=== PATIENT | female | born 1935 | race Caucasian/White ===

== ENCOUNTER 2022-09-21 07:20 | Observation (INO) | payer OTHER ==
[~2022-09-21] VITALS: Ht 149.9 cm; Wt 49.9 kg
[2022-09-21 07:26] VITALS: BP 185/75; PULSE 70; RESP 18; TEMP 98.3; O2SAT 99
--- NOTE | 2022-09-21 07:48 | NUR ---
87YO F BIBA FROM [facility], STAFF NOTICED HEMATOMA TO RT UPPER EYE LID. PER MEDICS STAFF STATES PT WAS LEFT ALONE FOR 1HR AND LATER FOUND WITH HEMATOMA. POSSIBLE UNWITNESSED FALL. PT STATES SHE HAS PAIN 7/10 TO RT SIDE OF HEAD, AOX3, HX DEMENTIA, PT STATES SHE DOESN'T REMEMBER FALLING. BRUISING W/SWELLING NOTED TO RT EYE LID OTHERWISE SKIN DRY/INTACT. DAUGHTER AND GRANDDAUGHTER AT BEDSIDE, PER DAUGHTER PT IS AT NORMAL MENTAL STATUS AND DOES NOT TAKE BLOOD THINNERS. PT DENIES N,V,D,C, FEVER, ABD PAIN, BACK PAIN, DIZZINESS, PT ON BRAND STRATEGY MANAGER, NAD NOTED, SAFETY MAINTAINED, CALL LIGHT IN REACH.
--- NOTE | 2022-09-21 07:48 | NUR ---
Note undone in EDM - 09/21/22 at 1050 by [email or web address] MYRIAM SHORT FROM [facility], STAFF NOTICED HEMATOMA TO RT UPPER EYE LID. PER MEDICS STAFF STATES PT WAS LEFT ALONE FOR 1HR AND LATER FOUND WITH HEMATOMA. POSSIBLE UNWITNESSED FALL. PT STATES SHE HAS PAIN 7/10 TO RT SIDE OF HEAD, AOX3, HX DEMENTIA, PT STATES SHE DOESN'T REMEMBER FALLING. BRUISING W/SWELLING NOTED TO RT EYE LID OTHERWISE SKIN DRY/INTACT. DAUGHTER AND GRANDDAUGHTER AT BEDSIDE, PER DAUGHTER PT IS AT NORMAL MENTAL STATUS AND DOES NOT TAKE BLOOD THINNERS. PT DENIES N,V,D,C, FEVER, ABD PAIN, BACK PAIN, DIZZINESS, PT ON CAST ASSOCIATE, NAD NOTED, SAFETY MAINTAINED, CALL LIGHT IN REACH.
[2022-09-21] MEDS ORDERED: ACETAMINOPHEN 325 MG TAB PO ONE (07:50)
--- NOTE | 2022-09-21 08:03 | NUR ---
PT IN CT
--- NOTE | 2022-09-21 08:12 | NUR ---
PT RETURNED TO BED [address] [facility]. FAMILY AT BEDSIDE. CALL LIGHT WITHIN REACH
[2022-09-21 08:13] LABS: BASOPHILS % (AUTO) 0.5 % (0.0-2.0); EOSINOPHILS # (AUTO) 0.1 K/uL (0-0.4); HEMATOCRIT 36.5 % (36-48); HEMOGLOBIN 12.2 g/dL (12.0-16.0); LYMPHOCYTES # (AUTO) 1.3 K/uL (2.5-16.5); LYMPHOCYTES % (AUTO) 22.7 % (20.5-51.1); MEAN CORPUSCULAR HEMOGLOBIN 32 pg (27-31); MEAN CORPUSCULAR HGB CONC 34 g/dL (33-37); MEAN CORPUSCULAR VOLUME 94.6 fL (80-94); MONOCYTES # (AUTO) 0.4 K/uL (0.8-1.0); MONOCYTES % (AUTO) 7.2 % (1.7-9.3); NEUTROPHILS # (AUTO) 3.8 K/uL (1.8-7.7); NEUTROPHILS % (AUTO) 67.6 % (42.2-75.2); PLATELET COUNT (AUTO) 163 K/uL (140-450); RED BLOOD CELL COUNT(AUTO) 3.86 MIL/uL (4.20-5.40); RED CELL DISTRIBUTION WIDTH 13.3 % (11.6-13.7); WHITE BLOOD COUNT (AUTO) 5.7 K/uL (4.8-10.8)
[2022-09-21 08:26] LABS: PROTHROMBIN TIME 10.6 secs (10.8-13.4)
[2022-09-21 08:29] LABS: ALBUMIN 3.7 g/dL (3.4-5.0); ANION GAP 13.2 (8-16); ASPARTATE AMINOTRANSFERASE 18 U/L (15-37); CARBON DIOXIDE 23.9 mmol/L (21-32); CHLORIDE 110 mmol/L (98-107); CREATININE 1.7 mg/dL (0.6-1.3); GLUCOSE 104 mg/dL (74-106); POTASSIUM 5.1 mmol/L (3.5-5.1); SODIUM SERUM 142 mmol/L (136-145); TOTAL BILIRUBIN 0.3 mg/dL (0.0-1.0); UREA NITROGEN, BLOOD 46 mg/dL (7-18)
[2022-09-21] MEDS ORDERED: ACETAMINOPHEN 325 MG TAB PO PRN (09:10)
[2022-09-21] MEDS ORDERED: HYDROcodone/APAP 5/325 MG 1 TAB TAB PO PRN (09:10)
[2022-09-21] MEDS ORDERED: MORPHINE SULFATE 4 MG/ML SYR IVP PRN (09:10)
[2022-09-21] MEDS ORDERED: MAG SULF 2000 MG/WATER PREMIX 50 ML IV PRN (09:10)
[2022-09-21] MEDS ORDERED: LORazepam 1 MG TAB PO PRN (09:10)
[2022-09-21] MEDS ORDERED: ZOLPIDEM 5 MG TAB PO PRN (09:10)
[2022-09-21] MEDS ORDERED: POTASSIUM CHLORIDE 10 MEQ TABER PO PRN (09:10)
[2022-09-21] MEDS ORDERED: KCL 20 MEQ IN 100 mL PREMIX 200 ML IV PRN (09:10)
[2022-09-21] MEDS ORDERED: hydrALAZINE 20 MG/ML VIAL IVP PRN (09:10)
[2022-09-21] MEDS ORDERED: ONDANSETRON 4 MG/2 ML VIAL IVP PRN (09:10)
--- NOTE | 2022-09-21 09:31 | NUR ---
87 Y/O FEMALE BIBA FROM [facility], PT PRESENTS TO ED WITH HEAD INJURY IN RELATION TO UNWTINESSED FALL AND C/O HEADACHE. UPON ASSESSMENT, PT HAS HEMATOMA ON RIGHT FOREHEAD AND IS AT BASELINE MENTATION. DENIES N/V/D, DIZZY, VISION CHANGES. PT DOES NOT TAKE BLOOD THINNERS. SKIN IS PINK/WARM/DRY; LUNGS CLEAR BL; HR EVEN AND REGULAR; PT DENIES ANY FEVER, CP, SOB, OR COUGH AT THIS TIME; PATIENT POSITIONED FOR COMFORT; HOB ELEVATED; BEDRAILS UP X2; BED DOWN. ER MD MADE AWARE OF PT STATUS. CALL LIGHT WITHIN REACH. PMH: ALZHEIMERS, IMPINGEMENT SYNDROME, HLD, HYPOTHYROID, UTI, OSETOARTHRITIS, GLAUCOMA, CALCIFIC TENDONITIS, DEMENTIA NKA
[2022-09-21] MEDS ORDERED: CLONIDINE HYDROCHLORIDE 0.1 MG TAB PO PRN (09:45)
[2022-09-21] MEDS ORDERED: DOCUSATE SODIUM 100 MG GELCAP PO ONE (09:47)
[2022-09-21 09:52] VITALS: O2SAT 99
--- NOTE | 2022-09-21 09:52 | NUR ---
[place] COMFORT[place] [facility] [place], DAUGHTER AND GRANDAUGHTER AT BEDSIDE TALKING AND LAUGHING. NO CHANGE IN CONDITION, AWAITING FOR ADMIT BED TO TELE-OBS. CALL LIGHT IN REACH.
[2022-09-21] MEDS: NACL 0.9% 1,000 ML IV SCH (10:10)
[2022-09-21] MEDS: amLODIPine 5 MG TAB PO SCH (10:16)
[2022-09-21] MEDS ORDERED: INTUBATION KIT MC ONE (10:20)
[2022-09-21 12:00] VITALS: O2SAT 99
--- NOTE | 2022-09-21 12:04 | NUR ---
US AT BEDSIDE
--- NOTE | 2022-09-21 14:11 | NUR ---
RICK REBOLLEDO #[phone] FAX - FAXED OVER CLINICALS AND LABS
[2022-09-21 14:18] VITALS: O2SAT 99
--- NOTE | 2022-09-21 14:22 | NUR ---
NO CHANGE IN CONDITION, PT SLEEPING, CHEST RISE/FALL NOTED, ON DIP TANKER, SAFETY MAINTAINED, AWAITING FOR TELE BED.
[2022-09-21 14:42] LABS: APPEARANCE,URINE CLEAR (CLEAR); BILIRUBIN,URINE NEGATIVE (NEGATIVE); BLOOD, URINE NEGATIVE (NEGATIVE); COLOR,URINE YELLOW (YELLOW); LEUKOCYTE ESTERASE ,URINE NEGATIVE (NEGATIVE); NITRITE, URINE NEGATIVE (NEGATIVE); UGLUCOSE NEGATIVE (NEGATIVE)
--- NOTE | 2022-09-21 15:39 | NUR ---
PATIENT HAS BEEN SCREENED AND CATEGORIZED LOW NUTRITION RISK. PATIENT WILL BE SEEN WITHIN 7 DAYS OF ADMISSION. 09/28/[address]
[2022-09-21 16:05] VITALS: BP 146/55; PULSE 70; PULSE 71; RESP 18; TEMP 97.7; O2SAT 99
--- NOTE | 2022-09-21 16:05 | NUR ---
PT ARRIVED TO [facility] UNIT FROM ER VIA GURNEY. PT IS AWAKE, AOX0 MUMBLING TO HERSELF. RESPIRATIONS EVEN AND UNLABORED ON RA O2 SATURATING AT 99%. IV ON R WRIST 20G INFUSING NS @50. SKIN WARM AND DRY. WITH PUREWICK IN PLACE. PT IV WRAPPED. FAMILY AT BEDSIDE. CALL LIGHT WITHIN REACH. ALL SAFETY PRECAUTIONS IN PLACE. VS TAKEN TEMP 97.7, HR 70, BP 146/55, RESPIRATIONS 18, O2 SATURATION 99%.
--- NOTE | 2022-09-21 17:39 | NUR ---
P.T. NOTES P.T. EVAL COMPLETED; REFER TO EVAL FOR DETAILS.
[2022-09-21] MEDS ORDERED: LISI20TA29 PO (18:16)
[2022-09-21] MEDS ORDERED: MECL-231 PO (18:49)
[2022-09-21] MEDS ORDERED: NETA2.5D OP (18:49)
[2022-09-21] MEDS ORDERED: TRAV5SOL OP (18:49)
[2022-09-21] MEDS ORDERED: MEMA5TAB41 PO (18:49)
[2022-09-21] MEDS ORDERED: ALPOS OP (18:49)
[2022-09-21] MEDS ORDERED: TRAV2.5D2 OP (18:49)
[2022-09-21] MEDS ORDERED: LEVO0.0512 PO (18:49)
[2022-09-21] MEDS ORDERED: MIRT-33 PO (18:49)
[2022-09-21] MEDS ORDERED: DONE10TA37 PO (18:49)
--- NOTE | 2022-09-21 19:03 | NUR ---
ENDORSED PT TO CYBER SYSTEMS ADMINISTRATOR NURSE FOR CONTINUITY OF CARE. PT IS STABLE.
--- NOTE | 2022-09-21 19:30 | NUR ---
RECEIVED REPORT FROM DAY SHIFT NURSE SAMANTHA FOR CONTINUITY OF CARE. PATIENT IS A&O X0. PATIENT IS ON ROOM AIR; BREATHING IS NORMAL WITH SYMMETRICAL RISE AND FALL OF CHEST. IV IS A 20G R WRIST; RUNNING NS AT 50. PATIENT IS LYING SUPINE IN BED. BED IS IN LOWEST POSITION, WHEELS LOCKED, AND CALL LIGHT IN PLACE. WILL CONTINUE TO OBSERVE PATIENT.
[2022-09-21 20:00] VITALS: BP 143/73; PULSE 78; PULSE 79; PULSE 82; RESP 18; TEMP 96.6; O2SAT 98
[2022-09-22] VITALS: BP 137/47; PULSE 79; PULSE 80; RESP 18; TEMP 96.3; O2SAT 98
--- NOTE | 2022-09-22 01:00 | NUR ---
LOOKED IN ON PATIENT. PATIENT IS LYING SUPINE IN BED. PATIENT IS MALDIVIAN SPEAKING AND HAS BEEN AWAKE MOST OF THE NIGHT LOOKING AT THE CEILING TALKING TO HERSELF. TRIED TALKING TO PATIENT; PATIENT JUST CONTINUES LOOKING AT THE CEILING TALKING. PATIENT'S BREATHING IS NORMAL WITH SYMMETRICAL RISE AND FALL OF CHEST. IV IS STILL RUNNING; WILL CONTINUE TO OBSERVE PATIENT.
[2022-09-22 04:00] VITALS: BP 154/72; PULSE 75; PULSE 78; RESP 18; TEMP 96; O2SAT 97
[2022-09-22] MEDS: NACL 0.9% 1,000 ML IV SCH (04:47)
--- NOTE | 2022-09-22 05:00 | NUR ---
PATIENT HAD VOIDED WITH NO BM. PATIENT WAS CLEANED, NEW CHUCKS AND TOWEL WERE PLACED WITH THE ASSISTANCE OF CONCHITA GOLD. PATIENT TOLERATED WELL. PATIENT'S BREATHING IS NORMAL WITH SYMMETRICAL RISE AND FALL OF CHEST. BED IS IN LOWEST POSITION, WHEELS LOCKED, CALL LIGHT IN PLACE. WILL CONTINUE TO OBSERVE PATIENT.
[2022-09-22 06:25] LABS: BASOPHILS % (AUTO) 0.5 % (0.0-2.0); EOSINOPHILS # (AUTO) 0.1 K/uL (0-0.4); EOSINOPHILS % (AUTO) 1.5 % (0.0-4.0); HEMATOCRIT 35.8 % (36-48); HEMOGLOBIN 12.2 g/dL (12.0-16.0); LYMPHOCYTES # (AUTO) 1.6 K/uL (2.5-16.5); LYMPHOCYTES % (AUTO) 24.7 % (20.5-51.1); MEAN CORPUSCULAR HEMOGLOBIN 32 pg (27-31); MEAN CORPUSCULAR HGB CONC 34 g/dL (33-37); MEAN CORPUSCULAR VOLUME 94.2 fL (80-94); MONOCYTES # (AUTO) 0.4 K/uL (0.8-1.0); MONOCYTES % (AUTO) 6.8 % (1.7-9.3); NEUTROPHILS # (AUTO) 4.4 K/uL (1.8-7.7); NEUTROPHILS % (AUTO) 66.5 % (42.2-75.2); PLATELET COUNT (AUTO) 177 K/uL (140-450); RED BLOOD CELL COUNT(AUTO) 3.81 MIL/uL (4.20-5.40); RED CELL DISTRIBUTION WIDTH 13.5 % (11.6-13.7); WHITE BLOOD COUNT (AUTO) 6.6 K/uL (4.8-10.8)
[2022-09-22 06:26] LABS: ANION GAP 15.5 (8-16); CARBON DIOXIDE 22.6 mmol/L (21-32); CHLORIDE 112 mmol/L (98-107); CREATININE 1.3 mg/dL (0.6-1.3); GLUCOSE 92 mg/dL (74-106); POTASSIUM 4.1 mmol/L (3.5-5.1); SODIUM SERUM 146 mmol/L (136-145); UREA NITROGEN, BLOOD 29 mg/dL (7-18)
--- NOTE | 2022-09-22 07:54 | NUR ---
ENDORSED TO DAY SHIFT NURSE DAIRAN FOR CONTINUITY OF CARE. PATIENT IS STABLE.
--- NOTE | 2022-09-22 07:55 | NUR ---
RECEIVED BEDSIDE REPORT FROM WALL CLEANER NURSE FOR CONTINUITY OF CARE. PT IS AWAKE, NO SIGN OF DISTRESS, CALL LIGHT WITHIN REACH.
[2022-09-22 08:00] VITALS: BP 164/91; PULSE 75; PULSE 88; RESP 18; TEMP 97.3; O2SAT 98; O2SAT 99
[2022-09-22] MEDS ORDERED: MAG SULF 2000 MG/WATER PREMIX 50 ML IV SCH (08:00)
[2022-09-22] MEDS ORDERED: LORazepam 2 MG/ML VIAL IM/IVP PRN (08:20)
[2022-09-22] MEDS ORDERED: NACL 0.45% 1,000 ML IV SCH (09:00)
[2022-09-22] MEDS: amLODIPine 5 MG TAB PO SCH (09:00)
[2022-09-22] MEDS ORDERED: DOCUSATE SODIUM 100 MG GELCAP PO SCH (09:00)
[2022-09-22] MEDS ORDERED: MAG SULF 2000 MG/WATER PREMIX 50 ML IV ONE (09:05)
--- NOTE | 2022-09-22 09:30 | NUR ---
PT WAS AGITATED, GAVE HER ATIVAN STILL REFUSED TO EAT, DRINK PO MEDS AND IV INSERTION.
--- NOTE | 2022-09-22 11:28 | NUR ---
RECEIVED ORDER FOR PATIENT TO GO BACK TO SNF FOR CONTINUE OF CARE. FAXED ALL PAPERWORK TO [facility] AND [facility]. SPOKE WITH RITA AT [facility] WHO APPROVED TRANSPORT AUTH #[id number] AND APPROVED FOR PRISON STAY AUTH #[id number]. SPOKE WITH KADI FROM [facility] WHO WANTED PATIENT SKILLED NOT PRISON I EXPLAINED TO HER THAT ITS UP TO THE INSURANCE WHAT THEY APPROVE AND SHE CAN SPEAK WITH RITA. GOT A CALL BACK FROM KADI WHO SAID RITA WILL GIVE HER A SKILLED AUTH. PATIENT WILL BE GOING BACK SKILLED AT [facility] LOCATED [address] [place] [address]. PATIENT WILL BE GOING TO ROOM 10-A UNDER DR TIDWELL. TRANSPORTATION WAS ARRANGED WITH [facility] FOR A 1600 PHLEBOTOMIST ASSOCIATE TIME. DAUGHTER BONNIE AND CHARGE NURSE LD AWARE OF THE ABOVE INFORMATION.
[2022-09-22 12:00] VITALS: BP 119/56; PULSE 75; PULSE 78; RESP 18; TEMP 97.2; O2SAT 99
--- NOTE | 2022-09-22 12:00 | NUR ---
PT IS ASLEEP, DOESN'T WANT TO TAKE PO MAGNESIUM AND PREFERRED TO SLEEP, MD AND CHARGE NURSE INFORMED. NO SIGN OF DISTRESS, CALL LIGHT WITHIN REACH.
[2022-09-22 13:51] VITALS: PULSE 78
--- NOTE | 2022-09-22 14:00 | NUR ---
GAVE REPORT TO RICK SLATER TO [facility] FOR TRANSFER OF CARE. PT IS STABLE, NO SIGN OF DISTRESS. CALL LIGHT WITHIN REACH.
[2022-09-22] MEDS ORDERED: MAGNESIUM OXIDE 400 MG TAB PO SCH (15:00)
--- NOTE | 2022-09-22 15:20 | NUR ---
Textile Machine Maintenance Mechanic: Advised by nursing that the patient has orders to return back to her placement at [facility]. per nursing, transport to arrive at . [facility]:
--- NOTE | 2022-09-22 16:00 | NUR ---
PT WAS PICKED UP BY NON EMERGENT TRANSPORTATION, PT WAS ASLEEP, LEFT THE UNIT IN A GURNEY. PT IS STABLE AND NO SIGN OF DISTRESS.
== END 2022-09-22 16:16 ==
LOC: MED 07:20 → MTU 09:12
PROVIDERS: ADMIT Internal Medicine; ATTEND Internal Medicine
DX: S00.11XA Contusion of right eyelid and periocular area, initial encounter (principal); E78.5 Hyperlipidemia, unspecified; E03.9 Hypothyroidism, unspecified; I12.9 Hypertensive chronic kidney disease with stage 1 through stage 4 chronic kidney disease, or unspecified chronic kidney disease; N18.9 Chronic kidney disease, unspecified; N17.9 Acute kidney failure, unspecified; M19.90 Unspecified osteoarthritis, unspecified site; H40.9 Unspecified glaucoma; F32.0 Major depressive disorder, single episode, mild; G30.9 Alzheimer's disease, unspecified; F02.80 Dementia in other diseases classified elsewhere, unspecified severity, without behavioral disturbance, psychotic disturbance, mood disturbance, and anxiety; E87.0 Hyperosmolality and hypernatremia; W18.39XA Other fall on same level, initial encounter; Y93.89 Activity, other specified; Y92.129 Unspecified place in nursing home as the place of occurrence of the external cause; Y99.8 Other external cause status; Z87.440 Personal history of urinary (tract) infections; Z79.899 Other long term (current) drug therapy
CPT/HCPCS: 36415; 70450; 71045; 76770; 80048; 80053; 81003; 83735; 84484; 85025; 85610; 85730; 87081; 93005; 96361; 96374; 97112; 97162; 97530; 99285; G0378; J2060; Q0092

== ENCOUNTER 2022-12-31 18:02 | Emergency (ER) | payer OTHER ==
[~2022-12-31] VITALS: Ht 162.6 cm; Wt 49.9 kg
[~2022-12-31 18:02] MED LIST: ALPOS OP; DONE10TA37 PO; LEVO0.0512 PO; LISI20TA29 PO; MECL-231 PO; MEMA5TAB41 PO; MIRT-33 PO; NETA2.5D OP; TRAV2.5D2 OP; TRAV5SOL OP
[2022-12-31 18:16] VITALS: BP 184/80; PULSE 76; RESP 18; TEMP 97; O2SAT 98
[2022-12-31 20:10] VITALS: O2SAT 98
[2022-12-31 20:44] LABS: BASOPHILS % (AUTO) 0.5 % (0.0-2.0); EOSINOPHILS # (AUTO) 0.2 K/uL (0-0.4); EOSINOPHILS % (AUTO) 2.6 % (0.0-4.0); HEMATOCRIT 33.4 % (36-48); HEMOGLOBIN 11.3 g/dL (12.0-16.0); LYMPHOCYTES % (AUTO) 30.3 % (20.5-51.1); MEAN CORPUSCULAR HEMOGLOBIN 32 pg (27-31); MEAN CORPUSCULAR HGB CONC 34 g/dL (33-37); MEAN CORPUSCULAR VOLUME 94.1 fL (80-94); MONOCYTES # (AUTO) 0.6 K/uL (0.8-1.0); MONOCYTES % (AUTO) 8.6 % (1.7-9.3); NEUTROPHILS # (AUTO) 3.8 K/uL (1.8-7.7); PLATELET COUNT (AUTO) 208 K/uL (140-450); RED BLOOD CELL COUNT(AUTO) 3.55 MIL/uL (4.20-5.40); RED CELL DISTRIBUTION WIDTH 14.3 % (11.6-13.7); WHITE BLOOD COUNT (AUTO) 6.6 K/uL (4.8-10.8)
[2022-12-31 20:55] LABS: INR 0.94 (0.8-1.2); PARTIAL THROMBOPLASTIN TIME 23.5 secs (22-35.6); PROTHROMBIN TIME 9.9 secs (10.8-13.4)
[2022-12-31 21:00] LABS: ALANINE AMINOTRANSFERASE 13 U/L (12-78); ALBUMIN 3.3 g/dL (3.4-5.0); ALKALINE PHOSPHATASE 101 U/L (50-136); ASPARTATE AMINOTRANSFERASE 12 U/L (15-37); CALCIUM 9.3 mg/dL (8.5-10.1); CHLORIDE 108 mmol/L (98-107); CREATININE 1.4 mg/dL (0.6-1.3); GLUCOSE 98 mg/dL (74-106); SODIUM SERUM 142 mmol/L (136-145); TOTAL BILIRUBIN 0.3 mg/dL (0.0-1.0); TOTAL PROTEIN, SERUM 6.8 g/dL (6.4-8.2); UREA NITROGEN, BLOOD 41 mg/dL (7-18)
[2022-12-31 21:05] LABS: LACTIC ACID 0.8 mmol/L (0.4-2.0)
[2022-12-31 22:22] LABS: APPEARANCE,URINE CLEAR (CLEAR); BILIRUBIN,URINE NEGATIVE (NEGATIVE); BLOOD, URINE NEGATIVE (NEGATIVE); COLOR,URINE YELLOW (YELLOW); LEUKOCYTE ESTERASE ,URINE 1+ (NEGATIVE); NITRITE, URINE NEGATIVE (NEGATIVE); PH,URINE 5.5 (5.0-9.0); PROTEIN,URINE NEGATIVE (NEGATIVE); UGLUCOSE NEGATIVE (NEGATIVE); UROBILINOGEN,URINE 0.2 EU/dL (0.2 - 1)
[2022-12-31 22:25] VITALS: O2SAT 100
[2022-12-31 22:51] LABS: RBC,URINE 0-5 /HPF (0-5)
[2022-12-31 22:52] LABS: BACTERIA,URINE 3+ /HPF (None Seen); SQUAMOUS EPITHELIAL CELL,UR 4-10 (MOD) /LPF (0-3 (FEW)); WBC,URINE 16-25 (MOD) /HPF (0-5)
[2022-12-31 23:47] VITALS: BP 158/72; PULSE 81; RESP 12; O2SAT 98
== END 2022-12-31 23:40 | disposition home or self-care (01) ==
LOC: MED 18:02
DX: R45.1 Restlessness and agitation (principal); F03.90 Unspecified dementia, unspecified severity, without behavioral disturbance, psychotic disturbance, mood disturbance, and anxiety; I10 Essential (primary) hypertension; E03.9 Hypothyroidism, unspecified; Z79.899 Other long term (current) drug therapy
CPT/HCPCS: 36415; 70450; 71045; 80053; 81001; 83605; 83880; 84484; 85025; 85610; 85730; 87040; 87086; 93005; 99285; Q0092

== ENCOUNTER 2023-05-15 20:39 | Observation (INO) | payer OTHER ==
[~2023-05-15] VITALS: Ht 157.5 cm; Wt 59.0 kg
[2023-05-15 20:50] VITALS: BP 110/64; PULSE 90; RESP 16; TEMP 97.1; O2SAT 96
[2023-05-15 21:09] LABS: BASOPHILS % (AUTO) 0.5 % (0.0-2.0); EOSINOPHILS # (AUTO) 0.1 K/uL (0-0.4); HEMATOCRIT 29.2 % (36-48); HEMOGLOBIN 10.1 g/dL (12.0-16.0); LYMPHOCYTES # (AUTO) 1.7 K/uL (2.5-16.5); LYMPHOCYTES % (AUTO) 22.7 % (20.5-51.1); MEAN CORPUSCULAR HEMOGLOBIN 35 pg (27-31); MEAN CORPUSCULAR HGB CONC 34 g/dL (33-37); MEAN CORPUSCULAR VOLUME 101.3 fL (80-94); MONOCYTES # (AUTO) 0.7 K/uL (0.8-1.0); MONOCYTES % (AUTO) 8.7 % (1.7-9.3); NEUTROPHILS # (AUTO) 5.2 K/uL (1.8-7.7); NEUTROPHILS % (AUTO) 67.1 % (42.2-75.2); PLATELET COUNT (AUTO) 168 K/uL (140-450); RED BLOOD CELL COUNT(AUTO) 2.88 MIL/uL (4.20-5.40); RED CELL DISTRIBUTION WIDTH 15.3 % (11.6-13.7); WHITE BLOOD COUNT (AUTO) 7.7 K/uL (4.8-10.8)
[2023-05-15] MEDS ORDERED: DOCU250S85 PO (21:18)
[2023-05-15] MEDS ORDERED: CEFT1VIA7 IM (21:18)
[2023-05-15] MEDS ORDERED: LATA2.5S14 OP (21:18)
[2023-05-15] MEDS ORDERED: MEMA10TA PO (21:18)
[2023-05-15 21:22] LABS: ANION GAP 17.1 (8-16); CALCIUM 8.3 mg/dL (8.5-10.1); CARBON DIOXIDE 16.3 mmol/L (21-32); CHLORIDE 114 mmol/L (98-107); CREATININE 2.2 mg/dL (0.6-1.3); GLUCOSE 140 mg/dL (74-106); POTASSIUM 5.4 mmol/L (3.5-5.1); SODIUM SERUM 142 mmol/L (136-145)
[2023-05-15 21:23] LABS: UREA NITROGEN, BLOOD 89 mg/dL (7-18)
[2023-05-15 21:31] LABS: ALANINE AMINOTRANSFERASE 9 U/L (12-78); ALBUMIN 3.1 g/dL (3.4-5.0); ALKALINE PHOSPHATASE 83 U/L (50-136); ASPARTATE AMINOTRANSFERASE 12 U/L (15-37); BILIRUBIN,DIRECT 0.1 mg/dL (0.0-0.3); TOTAL BILIRUBIN 0.1 mg/dL (0.0-1.0); TOTAL PROTEIN, SERUM 6.9 g/dL (6.4-8.2)
[2023-05-15] MEDS ORDERED: ceFAZolin 1,000 MG VIAL ONE (23:18)
[2023-05-15] MEDS ORDERED: cefTRIAXone 1,000 MG VIAL ONE (23:18)
[2023-05-15] MEDS: NACL 0.9% 1,000 ML IV ONE (23:36)
[2023-05-15 23:46] LABS: LACTIC ACID 1.6 mmol/L (0.4-2.0)
[2023-05-16 00:41] LABS: APPEARANCE,URINE CLEAR (CLEAR); BILIRUBIN,URINE NEGATIVE (NEGATIVE); BLOOD, URINE NEGATIVE (NEGATIVE); COLOR,URINE YELLOW (YELLOW); LEUKOCYTE ESTERASE ,URINE NEGATIVE (NEGATIVE); NITRITE, URINE POSITIVE (NEGATIVE); PH,URINE 5.5 (5.0-9.0); PROTEIN,URINE NEGATIVE (NEGATIVE); UGLUCOSE NEGATIVE (NEGATIVE); UROBILINOGEN,URINE 0.2 EU/dL (0.2 - 1)
[2023-05-16] MEDS ORDERED: ONDANSETRON 4 MG/2 ML VIAL IVP PRN (02:15)
[2023-05-16] MEDS ORDERED: HYDROcodone/APAP 5/325 MG 1 TAB TAB PO PRN (02:15)
[2023-05-16] MEDS ORDERED: MAGNESIUM OXIDE 400 MG TAB PO PRN (02:15)
[2023-05-16] MEDS ORDERED: MORPHINE SULFATE 2 MG/ML SYR IVP PRN (02:15)
[2023-05-16] MEDS ORDERED: MAG SULF 2000 MG/WATER PREMIX 50 ML IV PRN (02:15)
[2023-05-16] MEDS ORDERED: ACETAMINOPHEN 325 MG TAB PO PRN (02:15)
[2023-05-16] MEDS: SODIUM ZIRCONIUM CYCLOSILICATE 10 GM POWD.PACK PO SCH (03:03)
[2023-05-16] MEDS: NACL 0.9% 1,000 ML IV SCH (03:04)
[2023-05-16 06:06] VITALS: TEMP 98.2
[2023-05-16 06:47] LABS: BASOPHILS % (AUTO) 0.3 % (0.0-2.0); EOSINOPHILS % (AUTO) 0.6 % (0.0-4.0); HEMATOCRIT 27.1 % (36-48); HEMOGLOBIN 9.3 g/dL (12.0-16.0); LYMPHOCYTES % (AUTO) 26.6 % (20.5-51.1); MEAN CORPUSCULAR HEMOGLOBIN 35 pg (27-31); MEAN CORPUSCULAR HGB CONC 34 g/dL (33-37); MONOCYTES # (AUTO) 0.5 K/uL (0.8-1.0); NEUTROPHILS % (AUTO) 65.5 % (42.2-75.2); PLATELET COUNT (AUTO) 152 K/uL (140-450); RED BLOOD CELL COUNT(AUTO) 2.68 MIL/uL (4.20-5.40); RED CELL DISTRIBUTION WIDTH 14.8 % (11.6-13.7); WHITE BLOOD COUNT (AUTO) 7.6 K/uL (4.8-10.8)
[2023-05-16 06:54] LABS: ANION GAP 16.5 (8-16); CALCIUM 7.9 mg/dL (8.5-10.1); CARBON DIOXIDE 15.6 mmol/L (21-32); CHLORIDE 116 mmol/L (98-107); CREATININE 1.9 mg/dL (0.6-1.3); GLUCOSE 108 mg/dL (74-106); POTASSIUM 5.1 mmol/L (3.5-5.1); SODIUM SERUM 143 mmol/L (136-145)
[2023-05-16 07:04] LABS: UREA NITROGEN, BLOOD 76 mg/dL (7-18)
[2023-05-16 09:00] VITALS: BP 132/47; PULSE 75; RESP 12; O2SAT 96
[2023-05-16] MEDS ORDERED: CEFD300C3 PO (13:28)
[2023-05-16] MEDS: LORazepam 0.5 MG TAB PO SCH (14:11)
[2023-05-16] MEDS ORDERED: MEDS-TO-BEDS MC SCH (21:00)
== END 2023-05-16 17:41 ==
LOC: MED 20:39 → MTU 05-16 02:22
PROVIDERS: ADMIT Student in an Organized Health Care Education/Training Program; ATTEND Student in an Organized Health Care Education/Training Program
DX: N17.9 Acute kidney failure, unspecified (principal); E87.5 Hyperkalemia; I12.9 Hypertensive chronic kidney disease with stage 1 through stage 4 chronic kidney disease, or unspecified chronic kidney disease; E11.22 Type 2 diabetes mellitus with diabetic chronic kidney disease; N18.9 Chronic kidney disease, unspecified; E86.1 Hypovolemia; N39.0 Urinary tract infection, site not specified; E78.5 Hyperlipidemia, unspecified; Z79.899 Other long term (current) drug therapy
CPT/HCPCS: 36415; 71045; 80048; 80076; 81003; 83605; 83735; 83880; 84484; 85025; 87040; 87081; 87086; 93005; 96361; 96365; 96372; 97163; 97530; 99285; G0378; J0696; J1644; Q0092; J0690

== ENCOUNTER 2023-06-03 22:51 | Observation (INO) | payer OTHER ==
[~2023-06-03] VITALS: Ht 157.5 cm; Wt 49.9 kg
[~2023-06-03 22:51] MED LIST changes: +CEFD300C3 PO; +DOCU250S85 PO; +LATA2.5S14 OP; +MEMA10TA PO
[2023-06-03 23:12] VITALS: BP 144/58; PULSE 74; RESP 20; TEMP 97.7; O2SAT 98
[2023-06-04] MEDS ORDERED: SENN-73 PO
[2023-06-04] MEDS ORDERED: ASCO500T95 PO
[2023-06-04] MEDS ORDERED: MIRT-120 PO
[2023-06-04] MEDS ORDERED: PATI8.4P PO
[2023-06-04] MEDS ORDERED: MELA3TER PO
[2023-06-04] MEDS ORDERED: MEGEST
[2023-06-04] MEDS ORDERED: XALOS OP
[2023-06-04] MEDS ORDERED: ACET-10509 PO
[2023-06-04 02:05] LABS: BASOPHILS % (AUTO) 0.4 % (0.0-2.0); EOSINOPHILS # (AUTO) 0.1 K/uL (0-0.4); EOSINOPHILS % (AUTO) 0.9 % (0.0-4.0); HEMATOCRIT 31.8 % (36-48); HEMOGLOBIN 10.8 g/dL (12.0-16.0); LYMPHOCYTES # (AUTO) 2.2 K/uL (2.5-16.5); LYMPHOCYTES % (AUTO) 22.6 % (20.5-51.1); MEAN CORPUSCULAR HEMOGLOBIN 35 pg (27-31); MEAN CORPUSCULAR HGB CONC 34 g/dL (33-37); MEAN CORPUSCULAR VOLUME 101.7 fL (80-94); MONOCYTES # (AUTO) 0.7 K/uL (0.8-1.0); MONOCYTES % (AUTO) 6.9 % (1.7-9.3); NEUTROPHILS # (AUTO) 6.7 K/uL (1.8-7.7); NEUTROPHILS % (AUTO) 69.2 % (42.2-75.2); PLATELET COUNT (AUTO) 225 K/uL (140-450); RED BLOOD CELL COUNT(AUTO) 3.12 MIL/uL (4.20-5.40); RED CELL DISTRIBUTION WIDTH 15.6 % (11.6-13.7); WHITE BLOOD COUNT (AUTO) 9.7 K/uL (4.8-10.8)
[2023-06-04 02:29] LABS: ANION GAP 18.5 (8-16); CALCIUM 9.1 mg/dL (8.5-10.1); CARBON DIOXIDE 16.1 mmol/L (21-32); CHLORIDE 113 mmol/L (98-107); CREATININE 1.8 mg/dL (0.6-1.3); GLUCOSE 103 mg/dL (74-106); SODIUM SERUM 141 mmol/L (136-145)
[2023-06-04 02:39] LABS: POTASSIUM 6.6 mmol/L (3.5-5.1); UREA NITROGEN, BLOOD 82 mg/dL (7-18)
[2023-06-04 02:51] VITALS: PULSE 70; RESP 12; O2SAT 100
[2023-06-04] MEDS: ALBUTEROL 0.083% 2.5 MG/3 ML NEBU INH ONE (02:51)
[2023-06-04] MEDS: DEXTROSE 50% 50 ML SYR IVP ONE ×2 (03:10→11:57)
[2023-06-04] MEDS: INSULIN REGULAR, HUMAN 100 UNIT/ML VIAL IV ONE (03:12)
[2023-06-04] MEDS ORDERED: ACETAMINOPHEN 325 MG TAB PO PRN (03:15)
[2023-06-04] MEDS ORDERED: POTASSIUM CHLORIDE 10 MEQ TABER PO PRN (03:15)
[2023-06-04] MEDS ORDERED: ONDANSETRON 4 MG/2 ML VIAL IVP PRN (03:15)
[2023-06-04] MEDS ORDERED: HYDROcodone/APAP 5/325 MG 1 TAB TAB PO PRN (03:15)
[2023-06-04] MEDS ORDERED: MAGNESIUM OXIDE 400 MG TAB PO PRN (03:15)
[2023-06-04] MEDS: NACL 0.9% 1,000 ML IV ONE (03:20)
[2023-06-04] MEDS: SODIUM ZIRCONIUM CYCLOSILICATE 10 GM POWD.PACK PO ONE (04:22)
[2023-06-04] MEDS: SODIUM ZIRCONIUM CYCLOSILICATE 10 GM POWD.PACK PO STA (08:57)
[2023-06-04] MEDS ORDERED: SODIUM ZIRCONIUM CYCLOSILICATE 10 GM POWD.PACK PO SCH (08:59)
[2023-06-04 09:06] LABS: ANION GAP 20.3 (8-16); CALCIUM 8.9 mg/dL (8.5-10.1); CARBON DIOXIDE 14.1 mmol/L (21-32); CHLORIDE 115 mmol/L (98-107); CREATININE 1.9 mg/dL (0.6-1.3); GLUCOSE 83 mg/dL (74-106); SODIUM SERUM 143 mmol/L (136-145)
[2023-06-04 09:13] LABS: POTASSIUM 6.4 mmol/L (3.5-5.1); UREA NITROGEN, BLOOD 77 mg/dL (7-18)
[2023-06-04] MEDS ORDERED: CALCIUM GLUC 1 GM/50 mL NS BAG 50 ML IV ONE (09:38)
[2023-06-04] MEDS: CALCIUM GLUC 1 GM/50 mL NS BAG 50 ML IV ONE (09:49)
[2023-06-04] MEDS ORDERED: SODIUM BICARBONATE 8.4% 150 MEQ in DEXTROSE 5% 1,000 ML IV SCH (10:05)
[2023-06-04] MEDS: ALBUTEROL SULFATE/IPRATROPIU 3 ML SOL IH ONE (11:24)
[2023-06-04 11:40] VITALS: O2SAT 100
[2023-06-04 11:42] VITALS: PULSE 78; RESP 12; O2SAT 100
[2023-06-04] MEDS: ALBUTEROL 0.083% 2.5 MG/3 ML NEBU INH SCH (11:43)
[2023-06-04] MEDS: INSULIN REGULAR, HUMAN 100 UNIT/ML VIAL IVP ONE (11:52)
[2023-06-04 12:14] VITALS: PULSE 108; RESP 13; O2SAT 100
[2023-06-04] MEDS: SODIUM BICARBONATE 8.4% PFS 50 MEQ/50 ML SYR IVP ONE ×2 (12:15→21:52)
[2023-06-04] MEDS: SODIUM BICARBONATE 8.4% 150 MEQ in DEXTROSE 5% 1,000 ML IV SCH (12:16)
[2023-06-04 14:13] LABS: CALCIUM 9.1 mg/dL (8.5-10.1); CARBON DIOXIDE 17.8 mmol/L (21-32); CHLORIDE 114 mmol/L (98-107); GLUCOSE 160 mg/dL (74-106); POTASSIUM 4.8 mmol/L (3.5-5.1); SODIUM SERUM 146 mmol/L (136-145)
[2023-06-04 14:36] LABS: UREA NITROGEN, BLOOD 69 mg/dL (7-18)
[2023-06-04] MEDS: SODIUM ZIRCONIUM CYCLOSILICATE 10 GM POWD.PACK PO SCH (15:22)
[2023-06-04 21:15] VITALS: PULSE 81; RESP 16; O2SAT 100
[2023-06-05] VITALS: BP 114/64; PULSE 77; RESP 16; TEMP 98; O2SAT 100
[2023-06-05 04:00] VITALS: BP 124/71; PULSE 76; RESP 17; TEMP 97.5; O2SAT 100
[2023-06-05 07:03] LABS: BASOPHILS % (AUTO) 0.4 % (0.0-2.0); EOSINOPHILS # (AUTO) 0.1 K/uL (0-0.4); EOSINOPHILS % (AUTO) 0.6 % (0.0-4.0); HEMOGLOBIN 9.1 g/dL (12.0-16.0); LYMPHOCYTES # (AUTO) 2.4 K/uL (2.5-16.5); LYMPHOCYTES % (AUTO) 28.7 % (20.5-51.1); MEAN CORPUSCULAR HEMOGLOBIN 35 pg (27-31); MEAN CORPUSCULAR HGB CONC 35 g/dL (33-37); MEAN CORPUSCULAR VOLUME 98.1 fL (80-94); MONOCYTES # (AUTO) 0.7 K/uL (0.8-1.0); MONOCYTES % (AUTO) 8.2 % (1.7-9.3); NEUTROPHILS # (AUTO) 5.3 K/uL (1.8-7.7); NEUTROPHILS % (AUTO) 62.1 % (42.2-75.2); PLATELET COUNT (AUTO) 188 K/uL (140-450); RED BLOOD CELL COUNT(AUTO) 2.65 MIL/uL (4.20-5.40); RED CELL DISTRIBUTION WIDTH 15.3 % (11.6-13.7); WHITE BLOOD COUNT (AUTO) 8.5 K/uL (4.8-10.8)
[2023-06-05 07:46] LABS: MAGNESIUM 1.3 mg/dL (1.8-2.4)
[2023-06-05 08:00] VITALS: BP 155/60; PULSE 83; PULSE 86; RESP 16; TEMP 98; O2SAT 100
[2023-06-05] MEDS: MAG SULF 2000 MG/WATER PREMIX 50 ML IV PRN (09:18)
[2023-06-05 10:43] LABS: ANION GAP 14.4 (8-16); CALCIUM 8.3 mg/dL (8.5-10.1); CARBON DIOXIDE 25.6 mmol/L (21-32); CHLORIDE 108 mmol/L (98-107); CREATININE 1.6 mg/dL (0.6-1.3); GLUCOSE 107 mg/dL (74-106); SODIUM SERUM 143 mmol/L (136-145); UREA NITROGEN, BLOOD 50 mg/dL (7-18)
[2023-06-05 12:00] VITALS: BP 130/44; PULSE 76; PULSE 80; RESP 18; TEMP 97.6; O2SAT 98
[2023-06-05] MEDS ORDERED: SKINTEGRITY HYDROGEL TP PRN (15:00)
[2023-06-05 16:00] VITALS: BP 123/48; PULSE 75; PULSE 76; RESP 18; TEMP 97.4; O2SAT 99
[2023-06-05 17:37] VITALS: O2SAT 98
== END 2023-06-05 18:19 ==
LOC: MED 22:51 → MTU 06-04 03:16
PROVIDERS: ADMIT Hospitalist
DX: E87.5 Hyperkalemia (principal); I12.9 Hypertensive chronic kidney disease with stage 1 through stage 4 chronic kidney disease, or unspecified chronic kidney disease; N18.32 Chronic kidney disease, stage 3b; E87.20 Acidosis, unspecified; G30.9 Alzheimer's disease, unspecified; F02.80 Dementia in other diseases classified elsewhere, unspecified severity, without behavioral disturbance, psychotic disturbance, mood disturbance, and anxiety; Z98.890 Other specified postprocedural states; Z79.899 Other long term (current) drug therapy
CPT/HCPCS: 36415; 80048; 82948; 83735; 84100; 85025; 87081; 93005; 94640; 94760; 96361; 96365; 96366; 96368; 96372; 96375; 96376; 99291; A6248; G0378; J0610; J1644; J1815; J3490; J7060; J7613; 99284